=== PATIENT | male | born 1935 | race Caucasian/White ===

== ENCOUNTER → 2016-05-16 | Outpatient (CLI) | payer MEDICARE, OTHER ==
[~2016-05-16] MED LIST: ASPI-586 PO; ATOR20TA PO; CALC-84 PO; CETI10TA20 PO; CINN500C14 PO; CRV6.25T PO; FLUT125C PO; FLUT16SP; FNT25TD TD; GLUC-132 PO; GLUC1CAP8 PO; HYDR-3702 PO; HYDR-3811 PO; IBUP200C PO; KETO10TA PO; LD5PT TOP; METF500T PO; METF500T4 PO; MULT-116 PO; NAPR375T71 PO; OMEP20CA6 PO; OMG1KC PO; OXYC1TAB87 PO; POLY17PO2 PO; SERT25TA69 PO
[2016-05-16 11:37] LABS: ALBUMIN 4.1 g/dL (3.4-5.0); ANION GAP 16.7 MEQ/L (3-15); CALCULATED IONIZED CALCIUM 4.8 mg/dL (3.8-4.6); TOTAL PROTEIN 7.2 g/dL (6.4-8.5)
== END ==
LOC: LAB 10:57
PROVIDERS: ATTEND Internal Medicine Hematology & Oncology
DX: C61 Malignant neoplasm of prostate (principal)
CPT/HCPCS: 36415; 80053

== ENCOUNTER → 2016-07-25 | Outpatient (CLI) | payer MEDICARE, OTHER ==
[2016-07-25 07:50] LABS: MEAN CORPUSCULAR HEMOGLOBIN 28.8 PG (26.0-34.0); MEAN CORPUSCULAR VOLUME 87 FL (80-100); MEAN PLATELET VOLUME 9.1 FL (6.0-9.5); PLATELET COUNT 203 10^3uL (150-450); WHITE BLOOD COUNT 5.69 10^3uL (4.0-11.0)
[2016-07-25 08:00] LABS: BAND NEUTROPHILS % 0 % (0-6); EOSINOPHILS % 10 % (0-4); LYMPHOCYTES # 1.8 #; MONOCYTES # 0.4 #; MONOCYTES % 7 % (3-11); RBC MORPH NORMAL (NORMAL); SEGMENTED NEUTROPHILS % 50 % (51-67); TOTAL CELLS COUNTED 100
[2016-07-25 08:01] LABS: ALBUMIN 4.6 g/dL (3.4-5.0); ANION GAP 16.9 MEQ/L (3-15); CALCULATED IONIZED CALCIUM 4.2 mg/dL (3.8-4.6); MAGNESIUM* 1.9 mg/dL (1.6-2.3); PHOSPHORUS 3.4 mg/dL (2.4-4.9); TOTAL PROTEIN 8.1 g/dL (6.4-8.5)
[2016-07-28 13:42] LABS: PTH-RELATED PEPTIDE 0.5 pmol/L (<2.0)
== END ==
LOC: LAB 07:35
PROVIDERS: ATTEND Internal Medicine Hematology & Oncology
DX: C61 Malignant neoplasm of prostate (principal); R53.83 Other fatigue
CPT/HCPCS: 36415; 80053; 82397; 83615; 83735; 83970; 84100; 84443; 85007; 85027; G0103; 84153